=== PATIENT | female | born 1985 | race Caucasian/White ===

== ENCOUNTER 2017-03-29 08:38 | Outpatient (CLI) | payer OTHER ==
[2017-03-29 09:58] LABS: BASOPHILS % 1.1 (0.0-1.5); EOSINOPHILS % 1.3 % (0.0-6.8); MEAN CORPUSCULAR HEMOGLOBIN 29.7 pg (28.0-34.0); MEAN CORPUSCULAR VOLUME 90.6 fl (80.0-100.0); MONOCYTES % 3.9 % (0.0-11.0); NEUTROPHILS # 3.7 # k/uL (1.4-7.7)
[2017-03-29 11:16] LABS: eGFR (African) > 60; eGFR (Non-African) > 60
== END 2017-03-29 08:40 ==
LOC: LAB 08:38
PROVIDERS: ATTEND Nurse Practitioner Psychiatric/Mental Health
DX: Z79.899 Other long term (current) drug therapy (principal); Z51.81 Encounter for therapeutic drug level monitoring
CPT/HCPCS: 36415; 80053; 82306; 84443; 85025

== ENCOUNTER 2017-10-30 08:38 | Outpatient (CLI) | payer OTHER ==
[2017-10-30 14:41] LABS: BASO % 0.8 % (0.0-1.5); EOS % 1.1 % (0.0-6.8); MCH. 29.9 pg (28.0-34.0); MONOCYTE ABS # 0.31 thou/uL (0.00-0.90); PLATELET COUNT 202 thou/uL (130-400)
[2017-10-31 01:31] LABS: TOTAL PROTEIN 7.3 g/dL (6.0-8.5)
== END 2017-10-30 08:40 ==
LOC: LAB 08:38
PROVIDERS: ATTEND Nurse Practitioner Family
DX: Z51.81 Encounter for therapeutic drug level monitoring (principal); Z79.899 Other long term (current) drug therapy
CPT/HCPCS: 36415; 80053; 85025

== ENCOUNTER 2018-10-24 17:15 | Emergency (ER) | payer OTHER ==
--- NOTE | 2018-10-24 17:33 | ED Physician Documentation ---
General Adult - HISTORIAN Historian: patient - HPI Stated Complaint: laceration Chief Complaint: Laceration/Recheck/Suture Additional Information: Patient present to ED with laceration to right eye brow after tripping, falling and hitting head on kitchen table. Patient sustained a 1.5 cm laceration to right eye brow. She denies loss of consciousness, nausea, vomiting, visual changes or syncope. Onset: minutes (20) Timing: still present Severity: mild - ROS CONST: no problems EYES/ENT: denies: problems with vision CVS/RESP: denies: shortness of breath GI/: denies: vomiting, nausea MS/SKIN/LYMPH: none NEURO/PSYCH: denies: headache, dizziness - PAST HX Past History: none Other History: none Surgeries/Procedures: none - SOCIAL HX Smoking History: non-smoker Alcohol Use: none Drug Use: none - FAMILY HX Family History: No - REVIEWED ASSESSMENTS Nursing Assessment Reviewed: Yes Vitals Reviewed: Yes Procedures Wound Location: face (right eye brow) Wound Length: 1.5cm Betadine Prep?: Yes Volume of Anesthetic: 0 Wound Debrided: minimal Wound Repaired With: Dermabond General Adult Physical Exam - PHYSICAL EXAM GENERAL APPEARANCE: no distress EENT: CARI, other (1.5 cm laceration over right eye brow) NECK: supple RESPIRATORY: no resp distress, chest non-tender, breath sounds normal CVS: reg rate & rhythm, heart sounds normal ABDOMEN: soft, normal bowel sounds. No: tenderness BACK: normal inspection SKIN: warm/dry, normal color EXTREMITIES: non-tender, normal range of motion, no evidence of injury NEURO: oriented X3, mood/affect nml Discharge Clincal Impression: Laceration Referrals: Aleisha Blount MD [Primary Care Provider] - 2 Days Additional Instructions: 1. Keep wound dry. 2. Do NOT use lotions, oils, cremes or ointments on the wound 3. Skin glue will wear off naturally in 7-10 days 4. Do NOT pick at skin glue 5. Follow up with PCP within 1 week 6. Return to ER for new or worsening symptoms Comments: Patient is up to date on tetanus. Condition: Stable Disposition: 01 HOME, SELF-CARE Decision to Admit: NO Date of Decison to Admit: 10/24/18 Decision Time: 17:38
[2018-10-24 17:58] VITALS: BP 114/72
== END 2018-10-24 17:45 | disposition home or self-care (01) ==
LOC: ED 17:15
DX: S01.111A Laceration without foreign body of right eyelid and periocular area, initial encounter (principal); W22.03XA Walked into furniture, initial encounter
CPT/HCPCS: 12011; 99282